=== PATIENT | female | born 1945 | race Caucasian/White ===

== ENCOUNTER 2018-10-22 17:45 | Emergency (ER) | payer OTHER ==
[~2018-10-22] VITALS: Ht 165.1 cm; Wt 56.7 kg
[~2018-10-22 17:45] MED LIST: AMBIEN10 MG; ARICEPT10 MG; BUPROBAN150 MG; CAPOTEN50 MG; CLONAZEPAM0.5 MG; COMPLETE ALLERG50 MG; CYMBALTA60 MG; DICLOFENAC SODI50 MG; EFFEXOR XR150 MG; OMEPRAZOLE20 MG; RANITIDINE HCL150 M1; SEROQUEL300 MG; SIMVASTATIN10 MG
[2018-10-22] MEDS ORDERED: EFFEXOR XR75 MG (18:11)
[2018-10-22] MEDS ORDERED: NAMENDA XR28 MG (18:12)
[2018-10-22] MEDS ORDERED: CAPTOPRIL50 MG (18:14)
== END 2018-10-22 22:19 | disposition home or self-care (01) ==
LOC: ER 17:45
DX: K58.8 Other irritable bowel syndrome (principal); K57.30 Diverticulosis of large intestine without perforation or abscess without bleeding